=== PATIENT | male | born 1995 | race Caucasian/White ===

== ENCOUNTER 2020-02-15 08:11 | Emergency (ER) | payer OTHER ==
[2020-02-15] MEDS ORDERED: Ondansetron 4 MG Tab.DIS PO ONE (08:42)
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
--- NOTE | 2020-02-15 08:48 | CT ---
Head CT Technique: Multiple axial sections through the brain were obtained. Intravenous contrast was not utilized. Comparison: No prior intracranial imaging is available. Findings: Ventricles along with basal cisterns and sulci over the convexities are within normal limits for the patient's age. Soft tissue swelling is noted posteriorly within the scalp. No intracranial hemorrhage is seen. No midline shift or mass effect is seen. Bone window settings were reviewed. Visualized mastoid sinuses and visualized paranasal sinuses are clear. Impression: 1. Mild soft tissue swelling within the posterior left scalp. 2. No acute intracranial abnormality is appreciated. Diagnostic code #2 This report was dictated in MDT
[2020-02-15] MEDS ORDERED: Lidocaine 1% 10 ML MDV INJECT ONE (08:56)
== END 2020-02-15 10:47 | disposition home or self-care (01) ==
LOC: JD.ED 08:11
DX: S06.9X9A Unspecified intracranial injury with loss of consciousness of unspecified duration, initial encounter (principal); S11.91XA Laceration without foreign body of unspecified part of neck, initial encounter; V58.5XXA Driver of pick-up truck or van injured in noncollision transport accident in traffic accident, initial encounter
CPT/HCPCS: 12011; 70450; 99284; A9270; J2001; 12001; 99283